=== PATIENT | male | born 1985 | race Caucasian/White ===

== ENCOUNTER 2016-06-24 14:02 | Day surgery (SDC) | payer MEDICAID, OTHER ==
[2016-06-17 08:52] VITALS: BP 122/80
[2016-06-17 10:16] LABS: HEMATOCRIT 47.7 % (37.9-51.0); HEMOGLOBIN 15.9 g/dL (13.5-17.0); MEAN CORPUSCULAR HEMOGLOBIN 29.8 pg (27.0-33.4); MEAN CORPUSCULAR HGB CONC 33.4 g/dL (32.0-36.0); MEAN CORPUSCULAR VOLUME 89 fl (80-97); RED BLOOD COUNT 5.35 10^6/uL (4.35-5.55); RED CELL DISTRIBUTION WIDTH 12.9 % (11.5-14.0); WHITE BLOOD COUNT 9.8 10^3/uL (4.0-10.5)
[~2016-06-24 14:02] MED LIST: CEFAZOLIN 1 GM/D5W RTU 1 GM/50 ML RTUPB IV PRN; LACTATED RINGERS 1000 ML IV PRN; LIDOCAINE 0.5% INJ-PF (5 MG/ML) 50 ML SDV SUBCUT PRN; LIDOCAINE 1% INJ-PF (10 MG/ML) 30 ML SDV ONE; LIDOCAINE 1%/EPINEPHRINE INJ 20 ML VIAL ONE; SUCCINYLCHOLINE CHLORIDE INJ 200 MG/10 ML VIAL ONE
[2016-06-24] MEDS ORDERED: FENTANYL CITRATE INJ/PF 250 MCG/5 ML AMPULE ONE (16:14)
[2016-06-24] MEDS ORDERED: HYDROMORPHONE HCL INJ/PF 2 MG/ML AMPULE ONE (16:14)
[2016-06-24] MEDS ORDERED: ALBUTEROL SULFATE HFA (90 MCG/PUFF) 200 PUFF/8.5 GM MDI IH ONE (16:14)
[2016-06-24] MEDS ORDERED: MIDAZOLAM 2 MG/2 ML INJ ONE ×2 (16:14→16:15)
[2016-06-24] MEDS ORDERED: PROPOFOL INJ 200 MG/20 ML VIAL IV ONE (16:15)
[2016-06-24] MEDS ORDERED: BACITRACIN ZINC OINTMENT 15 GM ONE (16:56)
[2016-06-24] MEDS ORDERED: LIDOCAINE 2% INJ-PF (20 MG/ML) 10 ML AMPUL ONE (17:15)
[2016-06-24] MEDS ORDERED: MORPHINE SULFATE 10 MG/ML INJ ONE (18:05)
--- NOTE | 2016-06-25 08:59 | OPERATIVE REPORT E ---
Operative Report NAME: JANETH DOWLING : 1985 AGE: 31Y DATE OF SURGERY: 06/24/2016 ROOM: PREOPERATIVE DIAGNOSIS: Multiple sebaceous cysts of the scalp and scrotum. POSTOPERATIVE DIAGNOSIS: Multiple sebaceous cysts of the scalp and scrotum. OPERATION: Complete excision of: 1. Left frontal scalp sebaceous cyst. 2. Right posterior temporal sebaceous cyst. 3. Excision of right radha-scrotal cyst. SURGEON: TRAVIS HINES M.D. ENGINE HOSTLER: COLLEEN cabrera. ANESTHESIA: General. COMPLICATIONS: None. ESTIMATED BLOOD LOSS: Scant. DRAINS: None. TISSUE REMOVED OR ALTERED: Sebaceous cyst intact x3. SUMMARY OF PROCEDURE: The patient was seen in the preop holding area where the scalp and right radha-scrotal cysts were marked. There were 3 target lesions to be removed. The patient was taken to the operating room where general anesthesia was induced. Scalp and the right radha-scrotum were prepped and draped in a sterile fashion. Surgical plan and surgical timeout were conducted. Skin was anesthetized with 1% lidocaine without epinephrine. The scalp cysts were approached first. The left frontal scalp cyst was excised in its entirety by using a knife blade, cutting the full-thickness scalp down to the completely intact sebaceous cyst which was approximately 3 cm in diameter. The cyst was passed off to Pathology. Redundant skin was excised with the blade and the scalp closed with a running 4-0 Ethilon suture. The right posterior temporal scalp cyst approximately 3 cm in diameter was removed in identical fashion and the incision closed again with 4-0 Ethilon suture. The right radha-scrotal cyst was removed in a similar fashion. The scrotal skin was anesthetized with 1% lidocaine with epinephrine. Cyst was excised in its entirety with a small ellipse of overlying skin. The wound was closed with a running 4-0 Ethilon suture. The patient tolerated the procedure well. Sterile dressings were applied. The patient was extubated and taken to recovery in stable condition. DICTATING PHYSICIAN: TRAVIS HINES M.D. [id number] PHY#: [id number] ID: [id number] JOB#: [id number] ACCT: [id number] cc:TRAVIS HINES M.D. > MTDD
== END 2016-06-24 19:10 | disposition home or self-care (01) ==
LOC: OROUT 14:02
PROVIDERS: ATTEND Surgery
PROC: 0HB0XZZ Excision of Scalp Skin, External Approach (ICD-10-PCS; principal; 2016-06-24 16:15)
PROC: 0HBAXZZ Excision of Inguinal Skin, External Approach (ICD-10-PCS; 2016-06-24 16:15)
DX: L72.11 Pilar cyst (principal); L72.0 Epidermal cyst; M19.90 Unspecified osteoarthritis, unspecified site; M10.9 Gout, unspecified; F17.210 Nicotine dependence, cigarettes, uncomplicated; Z88.0 Allergy status to penicillin
CPT/HCPCS: 36415; 85027; 88304 ×2; 11423; J2250; J3490 ×3; J0690; J3010; J2270; J1170; J0330; J2704; 300